=== PATIENT | male | born 1970 | race Caucasian/White ===

== ENCOUNTER 2016-12-03 06:43 | Emergency (ER) | payer OTHER ==
[2016-12-03] MEDS ORDERED: NS 1,000 ML IV ONE (06:45)
--- NOTE | 2016-12-03 06:49 | EDPHY ---
H & P HPI/ROS: HPI CHIEF COMPLAINT: Seizure in bed 2 minutes with a postictal state. HISTORY OF PRESENT ILLNESS: This patient is a 46-year-old male otherwise healthy no significant medical history does not take any daily medications he presents emergency room by EMS after his was woken with him having a generalized tonic-clonic seizure in bed lasting 2 minutes. With a postictal state. EMS reports he was postictal. The reports to EMS that he had 2-3 margaritas last night and edible marijuana. He has never had a seizure before. No bowel bladder incontinence. Did not bite his tongue. Past Medical History: No significant medical history Past Surgical History: No significant surgical Social History: Alcohol last night, edible marijuana reported by EMS. Family History: Noncontributory ROS REVIEW OF SYSTEMS: A comprehensive 10 point review of systems is otherwise negative aside from elements mentioned in the history of present illness. Exam Constitutional appears well nontoxic, triage nursing summary reviewed, vital signs reviewed, awake/alert. Eyes normal conjunctivae and sclera, EOMI, PERRLA. HENT normal inspection, atraumatic, moist mucus membranes, no epistaxis, neck supple/ no meningismus, no raccoon eyes. Respiratory clear to auscultation bilaterally, normal breath sounds, no respiratory distress, no wheezing. Cardiovascular rate normal, regular rhythm, no murmur, no edema, distal pulses normal. Gastrointestinal soft, non-tender, no rebound, no guarding, normal bowel sounds, no distension, no pulsatile mass. Genitourinary no CVA tenderness. Musculoskeletal no midline vertebral tenderness, full range of motion, no calf swelling, no tenderness of extremities, no meningismus, good pulses, neurovascularly intact. Skin pink, warm, & dry, no rash, skin atraumatic. Neurologic normal neurological exam. awake, alert and oriented x 3, AAOx3, moves all 4 extremities equally, motor intact, sensory intact, CN II-XII intact , normal cerebellar, normal vision, normal speech. Psychiatric normal mood/affect. Heme/Lymph/Immune no lymphadenopathy. Differential Diagnosis: Includes but is not limited to in and a particular order: First-time seizure, alcohol on edible marijuana leading to first-time seizure, electrolyte disturbance, intracranial tumor Medical Decision Making: Plan for IV establishment blood draw, check electrolytes, alcohol level drug screen CT head without contrast given 1st seizure. Re-evaluation: CT scan of the head without IV contrast The results of the study are the studies abnormal according to Dr. Juarez. Unable to visualize the frontal lobes very well due to either beam hardening artifact or frontal cerebral edema cannot rule out frontal lobe mass. Recommend MRI with and without contrast.. The study was read by Dr. Juarez I viewed the images myself on the PACS system. 0713: Dr. Juarez recommends MRI with and without contrast to further delineate frontal lobes of this patient's brain cannot rule out brain edema versus mass. Or beam hardening artifact. EKG interpretation by me on record in [facility] system. Impression time of EKG 7:08 a.m., sinus rhythm rate of 66 otherwise unremarkable. No acute ischemic changes or signs of arrhythmia. 0727AM: reports to me that he had a 2 minutes generalized tonic-clonic seizure. Eyes were open. Movement of all extremities we shaking. With a postictal state. addition reports he has been very stressed and having significant anxiety at work. He partake in having margaritas and edible marijuana last night. He does smoke marijuana what he tells me is moderately. MRI of the MRI brain with and without contrast The results of the study are negative for anything acute. I discussed the results of this study with the radiologist Dr. Casey. 2048: Re-evaluation at this time patient resting comfortably no acute distress. Feels comfortable going home. His workup for first-time seizures unremarkable. MRI brain does not show anything acute. He understands he must follow up with Neurology outpatient to be cleared to go back to driving. Most likely cause of seizure is a mixture of alcohol edible marijuana stress and anxiety poor sleep. Understands call Neurology follow-up this week. Do not drive until cleared. At this time I do not have any indication of placed on antiseizure medications. They do understand if he has another seizure to immediately return back to the emergency room. I went over this with him and his . Rest stay well-hydrated. Return if any worsening symptoms questions or concerns.. Source: Patient, EMS Constitutional: Initial Vital Signs Temperature (C) 37 C 12/03/16 06:52 Heart Rate 80 12/03/16 06:52 Respiratory Rate 18 12/03/16 06:52 Blood Pressure 133/77 H 12/03/16 06:52 O2 Sat (%) 92 08/13/17 06:52 O2 Delivery Mode Room Air Allergies/Adverse Reactions: No Known Allergies Allergy (Unverified 12/03/16 06:51) Home Medications: Medication Instructions Recorded NK [No Known Home Meds] 12/03/16 Medical Decision Making - Diagnostics Imaging Results: Imaging Impressions Chest X-Ray 12/03/16 06:45 IMPRESSION: No evidence for acute cardiopulmonary abnormality. - Data Points Laboratory Results: Laboratory Results 12/03/16 06:50 12/03/16 06:50 12/03/16 12/03/16 06:50 06:50 WBC 10.62 10^3/uL H 10^3/uL (3.80-9.50) RBC 5.08 10^6/uL 10^6/uL (4.40-6.38) Hgb 13.9 g/dL g/dL (13.7-17.5) Hct 43.0 % % (40.0-51.0) MCV 84.6 fL fL (81.5-99.8) MCH 27.4 pg L pg (27.9-34.1) MCHC 32.3 g/dL L g/dL (32.4-36.7) RDW 13.4 % % (11.5-15.2) Plt Count 244 10^3/uL 10^3/uL (150-400) MPV 10.2 fL fL (8.7-11.7) Neut % (Auto) 39.3 % % (39.3-74.2) Lymph % (Auto) 49.6 % H % (15.0-45.0) Wise % (Auto) 6.1 % % (4.5-13.0) Eos % (Auto) 3.5 % % (0.6-7.6) Baso % (Auto) 0.7 % % (0.3-1.7) Nucleat RBC Rel Count 0.0 % % (0.0-0.2) Absolute Neuts (auto) 4.17 10^3/uL 10^3/uL (1.70-6.50) Absolute Lymphs (auto) 5.27 10^3/uL H 10^3/uL (1.00-3.00) Absolute Monos (auto) 0.65 10^3/uL 10^3/uL (0.30-0.80) Absolute Eos (auto) 0.37 10^3/uL 10^3/uL (0.03-0.40) Absolute Basos (auto) 0.07 10^3/uL 10^3/uL (0.02-0.10) Absolute Nucleated RBC 0.00 10^3/uL 10^3/uL (0-0.01) Immature Gran % 0.8 % % (0.0-1.1) Immature Gran # 0.09 10^3/uL 10^3/uL (0.00-0.10) Sodium 136 mEq/L mEq/L (134-144) Potassium 3.6 mEq/L mEq/L (3.5-5.2) Chloride 100 mEq/L mEq/L (97-110) Carbon Dioxide 17 mEq/l L mEq/l (22-31) Anion Gap 19 mEq/L H mEq/L (8-16) BUN 17 mg/dL mg/dL (7-23) Creatinine 1.1 mg/dL mg/dL (0.7-1.3) Estimated GFR > 60 Glucose 96 mg/dL mg/dL (70-100) Calcium 9.3 mg/dL mg/dL (8.5-10.4) Troponin I < 0.012 ng/mL ng/mL (0-0.034) Ethyl Alcohol < 10 mg/dL mg/dL (0-10) Medications Given: Discontinued Medications Sodium Chloride (Ns) 1,000 mls @ 0 mls/hr IV ONCE ONE; Wide Open PRN Reason: Protocol Stop: 12/03/16 06:46 Last Admin: 12/03/16 07:16 Dose: 1,000 mls Departure - Departure Disposition: Home, Routine, Self-Care Clinical Impression: Seizure Condition: Good Instructions: New-Onset Seizure in Adults (ED) Additional Instructions: 1. Do not drive into your cleared by Neurology. 2. Return emergency room if you have any worsening symptoms questions or concerns. 3. Refrain from drinking alcohol or doing edible marijuana. 4. Rest and take it easy. Referrals: Patient,NotPresent [Unknown] - As per Instructions Joseph Garcia MD [Medical Doctor] - As per Instructions Stand Alone Forms: Work Excuse
[2016-12-03 06:57] LABS: % IMMATURE GRANULYOCYTES 0.8 % (0.0-1.1); ABSOLUTE IMMATURE GRANULOCYTES 0.09 10^3/uL (0.00-0.10); ADD DIFF? NO; ADD MORPH? NO; ADD SCAN? NO; ATYPICAL LYMPHOCYTE FLAG 0 (0-99); FRAGMENT RBC FLAG 0 (0-99); HEMOGLOBIN 13.9 g/dL (13.7-17.5); LEFT SHIFT FLG 0 (0-99); LIPEMIA HEMOLYSIS FLAG 80 (0-99); MEAN CELL HEMOGLOBIN 27.4 pg (27.9-34.1); MEAN CELL HEMOGLOBIN CONCENTR. 32.3 g/dL (32.4-36.7); MEAN CELL VOLUME 84.6 fL (81.5-99.8); MEAN PLATELET VOLUME 10.2 fL (8.7-11.7); PLATELET CLUMPS FLAG 0 (0-99); PLATELET COUNT 244 10^3/uL (150-400); RED BLOOD CELL COUNT 5.08 10^6/uL (4.40-6.38); RED CELL DISTRIBUTION WIDTH 13.4 % (11.5-15.2)
[2016-12-03 07:06] LABS: ANION GAP 19 mEq/L (8-16); CALCIUM 9.3 mg/dL (8.5-10.4); CARBON DIOXIDE 17 mEq/l (22-31); CHLORIDE 100 mEq/L (97-110); CREATININE 1.1 mg/dL (0.7-1.3); ETHANOL SERUM < 10 mg/dL (0-10); GLOMERULAR FILTRATION RATE > 60; GLUCOSE 96 mg/dL (70-100); POTASSIUM 3.6 mEq/L (3.5-5.2); SODIUM 136 mEq/L (134-144)
--- NOTE | 2016-12-03 07:10 | CPEKG ---
Heart Rate: 66 RR Interval: 909 P-R Interval: 172 QRSD Interval: 88 QT Interval: 424 QTC Interval: 445 P [place]: 47 QRS [place]: 8 T Wave [place]: 3 EKG Severity - NORMAL ECG - EKG Impression: SINUS RHYTHM Electronically Signed By: Carl Pollard 03-Dec-2016 15:12:42
[2016-12-03 07:17] LABS: TROPONIN I < 0.012 ng/mL (0-0.034)
[2016-12-03] MEDS ORDERED: GADOBUTROL 10 ML VIAL IVP ONE (07:57)
[2016-12-03 09:11] VITALS: BP 133/72; PULSE 76; RESP 16; TEMP 97.7; O2SAT 98
== END 2016-12-03 09:11 | disposition home or self-care (01) ==
LOC: EDUNIT#
DX: R56.9 Unspecified convulsions (principal); E86.9 Volume depletion, unspecified
CPT/HCPCS: A9585; G0480

== ENCOUNTER → 2016-12-12 | Outpatient (CLI) | payer OTHER ==
--- NOTE | 2016-12-12 12:53 | CPEEG ---
[f rep st] ELECTROENCEPHALOGRAM EEG. DATE OF STUDY: 12/12/2016 INTERPRETATION: This EEG is abnormal due to the presence of potentially epileptogenic abnormalities over the right frontal head region. These findings would be consistent with a focal seizure disorder. REPORT: This EEG contains 10-11 Hz alpha activity to the posterior head regions. There was no abnormal activation at rest, during photic stimulation, or hyperventilation. The patient became drowsy and fell into light sleep intermittently during the study. During drowsiness and light sleep, the patient had activation of right frontal sharp waves. These discharges had maximal amplitudes over the right fronto-polar head region (electrode FP2). A message was left regarding these findings with the patient's primary neurologist , Dr. Susy Landry. /[id number]/MODL MTDD
== END ==
LOC: FCPNEURO 09:01
PROVIDERS: ATTEND Psychiatry & Neurology Neurology
DX: R56.9 Unspecified convulsions (principal)

== ENCOUNTER 2017-02-28 09:25 | Day surgery (SDC) | payer OTHER ==
[2017-02-28] MEDS ORDERED: MIDAZOLAM 2 MG/2 ML VIAL IVP ONE (09:28)
[2017-02-28] MEDS ORDERED: fentaNYL 100 MCG/2 ML INJ IVP ONE (09:28)
[2017-02-28] MEDS ORDERED: NS 500 ML IV ONE (09:28)
[2017-02-28] MEDS ORDERED: BENZOCAINE UNIT DOSE SPRAY HURRICAINE MM ONE (09:28)
--- NOTE | 2017-02-28 10:44 | PDANEPAE ---
ANE History of Present Illness 46 yo male with PFO/OMID for SALO. ANE Past Medical History - Cardiovascular History Hx Hypertension: No Hx Arrhythmias: No Hx Coronary Artery / Peripheral Vascular Disease: No - Pulmonary History Hx COPD: No Hx Recent Upper Respiratory Infection: No Hx Oxygen in Use at Home: No Hx Sleep Apnea: Yes Pulmonary History Comment: Uses mandibular advancement device for AB - pt says he does not use it regularly. - Neurologic History Hx Seizures: Yes Neurologic History Comment: Recently diagnosed with epilepsy, placed on Lamictal. - Endocrine History Hx Diabetes: No Hypothyroid: No - Renal History Hx Renal Disorders: No - Liver History Hx Hepatic Disorders: No - GI History GERD: no ANE Review of Systems Review of systems is: negative Review of Systems: ANE Patient History - Allergies Allergies/Adverse Reactions: Penicillins Allergy (Verified 02/28/17 09:56) - Home Medications Home medications: home medication list seen and reviewed Home Medications: Lamotrigine 25 mg 02/28/17 [Last Taken 02/28/17] - NPO status NPO Status: no food or drink >8 hours NPO Since - Liquids (Time): 09:15 (small sip of water with morning med) - Anes Hx Anes Hx: no prior problems - Smoking Hx Smoking Status: Former smoker Marijuana use: Yes - Alcohol Use Alcohol Use: Occasionally ANE Labs/Vital Signs - Vital Signs Height: 182.88 cm Weight: 95.254 kg ANE Physical Exam - Airway Neck exam: FROM Mallampati Score: Class 2 Mouth exam: normal dental/mouth exam - Pulmonary Pulmonary: clear to auscultation - Cardiovascular Cardiovascular: regular rate and rhythym - ASA Status ASA Status: II ANE Anesthesia Plan Anesthesia Plan: GA with mask Total IV Anesthesia: Yes
[2017-02-28] MEDS ORDERED: PROPOFOL 200 MG/20 ML VIAL ONE ×4 (10:45→11:14)
[2017-02-28] MEDS ORDERED: LIDOCAINE 2% 5 ML SDV ONE (10:45)
--- NOTE | 2017-02-28 18:48 | ECHO ---
[email or web address] [place] [id number] Main: [phone] Fax: Transesophageal Echocardiography Name: LILA CHANCE MR#: [id number] Study Date: 02/28/2017 Study Time: 10:52 AM Date of : 1970 Age: 46 year(s) Height: ( ) Weight: ( ) BSA: Gender: Male Examination: SALO Indication: Eval for PFO Image Quality: Contrast: Requested by: Roberto Oneil Heart Rate: Rhythm: Normal sinus rhythm BP: / Procedure Staff Med Specialist: Jamaal Pineda Reading Physician: Roberto Oneil Requesting Provider: SALO Exam Details Conclusions: Normal global systolic LV function. An agitated saline study was performed and was positive for intracardiac shunting. Evidence of a small functional patent foramen ovale. Measurements: Chambers Valvular Assessment AV/MV Valvular Assessment TV/PV Normal Normal Normal Name Value Range Name Value Range Name Value Range Visual EF: 60 % Additional Measurements: Findings: Left Ventricle: Normal global systolic LV function. The ejection fraction is visually estimated to be 60 %. Right Ventricle: Normal RV function. Left Atrium: An agitated saline study was performed and was positive for intracardiac shunting. Left Atrial Appendage: No thrombus in left appendage. Mitral Valve: There is no mitral valve regurgitation. Patient: LILA CHANCE Study Date: 02/28/2017 Page 1 of 2 10:52 AM Aortic Valve: The aortic valve is tri-leaflet. The aortic valve is normal in appearance and function. Tricuspid Valve: The tricuspid valve is normal in appearance and function. Pulmonic Valve: The pulmonic valve is normal in appearance and function. Aorta: The aorta is normal. Pericardium: No pericardial effusion. PFO: Evidence of a small functional patent foramen ovale. l1n (No Signature Object) Patient: LILA CHANCE Study Date: 02/28/2017 Page 2 of 2 10:52 AM [id number]
--- NOTE | 2017-02-28 18:48 | ECHO ---
[email or web address] [place] [id number] Main: [phone] Fax: Transesophageal Echocardiography Name: LILA CHANCE MR#: [id number] Study Date: 02/28/2017 Study Time: 10:52 AM Date of : 1970 Age: 46 year(s) Height: ( ) Weight: ( ) BSA: Gender: Male Examination: SALO Indication: Eval for PFO Image Quality: Contrast: Requested by: Roberto Oneil Heart Rate: Rhythm: Normal sinus rhythm BP: / Procedure Staff Log Handler: Jamaal Pineda Reading Physician: Roberto Oneil Requesting Provider: SALO Exam Details Conclusions: Normal global systolic LV function. An agitated saline study was performed and was positive for intracardiac shunting. Evidence of a small functional patent foramen ovale. Measurements: Chambers Valvular Assessment AV/MV Valvular Assessment TV/PV Normal Normal Normal Name Value Range Name Value Range Name Value Range Visual EF: 60 % Additional Measurements: Findings: Left Ventricle: Normal global systolic LV function. The ejection fraction is visually estimated to be 60 %. Right Ventricle: Normal RV function. Left Atrium: An agitated saline study was performed and was positive for intracardiac shunting. Left Atrial Appendage: No thrombus in left appendage. Mitral Valve: There is no mitral valve regurgitation. Patient: LILA CHANCE Study Date: 02/28/2017 Page 1 of 2 10:52 AM Aortic Valve: The aortic valve is tri-leaflet. The aortic valve is normal in appearance and function. Tricuspid Valve: The tricuspid valve is normal in appearance and function. Pulmonic Valve: The pulmonic valve is normal in appearance and function. Aorta: The aorta is normal. Pericardium: No pericardial effusion. PFO: Evidence of a small functional patent foramen ovale. l1n (No Signature Object) Patient: LILA CHANCE Study Date: 02/28/2017 Page 2 of 2 10:52 AM [id number]
--- NOTE | 2017-02-28 18:48 | ECHO ---
[email or web address] [place] [id number] Main: [phone] Fax: Transesophageal Echocardiography Name: LILA CHANCE MR#: [id number] Study Date: 02/28/2017 Study Time: 10:52 AM Date of : 1970 Age: 46 year(s) Height: ( ) Weight: ( ) BSA: Gender: Male Examination: SALO Indication: Eval for PFO Image Quality: Contrast: Requested by: Roberto Oneil Heart Rate: Rhythm: Normal sinus rhythm BP: / Procedure Staff Assistant Service Manager: Jamaal Pineda Reading Physician: Roberto Oneil Requesting Provider: SALO Exam Details Conclusions: Normal global systolic LV function. An agitated saline study was performed and was positive for intracardiac shunting. Evidence of a small functional patent foramen ovale. Measurements: Chambers Valvular Assessment AV/MV Valvular Assessment TV/PV Normal Normal Normal Name Value Range Name Value Range Name Value Range Visual EF: 60 % Additional Measurements: Findings: Left Ventricle: Normal global systolic LV function. The ejection fraction is visually estimated to be 60 %. Right Ventricle: Normal RV function. Left Atrium: An agitated saline study was performed and was positive for intracardiac shunting. Left Atrial Appendage: No thrombus in left appendage. Mitral Valve: There is no mitral valve regurgitation. Patient: LILA CHANCE Study Date: 02/28/2017 Page 1 of 2 10:52 AM Aortic Valve: The aortic valve is tri-leaflet. The aortic valve is normal in appearance and function. Tricuspid Valve: The tricuspid valve is normal in appearance and function. Pulmonic Valve: The pulmonic valve is normal in appearance and function. Aorta: The aorta is normal. Pericardium: No pericardial effusion. PFO: Evidence of a small functional patent foramen ovale. l1n (No Signature Object) Patient: LILA CHANCE Study Date: 02/28/2017 Page 2 of 2 10:52 AM [id number]
== END 2017-02-28 12:00 | disposition home or self-care (01) ==
LOC: FCATH 09:25
PROVIDERS: ATTEND Internal Medicine Cardiovascular Disease
DX: Q21.1 Atrial septal defect (principal); I51.7 Cardiomegaly
CPT/HCPCS: J2704

== ENCOUNTER 2017-08-01 23:04 | Emergency (ER) | payer SELFPAY ==
[2017-08-01 23:09] VITALS: BP 108/71
[2017-08-01] MEDS ORDERED: FLUORESCEIN SOD/BENOXINATE HCL 20 DROPS/ML OPHT.BTL ONE (23:14)
--- NOTE | 2017-08-01 23:19 | EDPHY ---
H & P Stated Complaint: LEFT EYE PAIN Time Seen by Provider: 08/01/17 23:18 HPI/ROS: HPI: This is a 47-year-old male who presents with Chief Complaint: Left eye pain Location: Left eye Quality: foreign body sensation Duration: since this morning Signs and Symptoms: no fever, no nausea, no vomiting, no photophobia, no noise sensitivity, no neck stiffness, no ear pain, no tinnitus, no nasal congestion, no sinus pressure, no weakness, no radiation, no aura, no eye drainage Timing: acute, constant Severity: mild to moderate Context: Patient reports that he was taking his child to school early this morning when he felt like he had something in his left upper eye near the 3 o' clock position. He reports that he flushed several times with cool water with no relief of the foreign body sensation. He denies any photophobia/ocular discharge/eye redness/visual floaters/headache. Patient reports that several years ago he had a similar situation in which they used a slit lamp to find a micro foreign body. He reports that he currently does not have insurance and he is extremely concerned about cost. Went to the urgent cares evening but they were already closed. Tetanus status unknown. Does not wear contact lenses. Modifying Factors: flushed with water several times with no relief Comment: ROS: see HPI Constitutional: No fever, no chills, no weight loss Eyes: No blurred vision Respiratory: No shortness of breath, no cough Cardiovascular: No chest pain, no palpitations Gastrointestinal: No nausea, no vomiting, no diarrhea, no hematemesis, no blood in stool Genitourinary: No dysuria, no blood in urine Extremities: No myalgias, no edema Neurologic: No weakness, no numbness Skin: No rashes, no petechiae Hematologic: No bruising, no bleeding MEDICAL/SURGICAL/SOCIAL HISTORY: Medical history: Generally healthy. Does not take any regular medications. 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 CONSTITUTIONAL: Well-developed, well-nourished, middle-aged white male, awake and alert, no obvious distress Visual Acuity: noted from Nurse's notes. Pupils: equal round and reactive to light. EOMI. Lids: no edema or swelling Skin: no proptosis, no periorbital erythema or swelling, no vesicles Conjunctivae: not injected, no discharge; small black pinpoint foreign body noted in the eyelid inner fold Cornea: exam with fluorescein shows no uptake Anterior chamber: normal, no hyphema or hypopyon Source: Patient Exam Limitations: No limitations - Personal History Current Tetanus/Diphtheria Vaccine: Unsure Current Tetanus Diphtheria and Acellular Pertussis (TDAP): Unsure - Medical/Surgical History Hx Asthma: No Hx Chronic Respiratory Disease: No Hx Diabetes: No Hx Cardiac Disease: No Hx Renal Disease: No Hx Cirrhosis: No Hx Alcoholism: No Hx HIV/AIDS: No Hx Splenectomy or Spleen Trauma: No Other PMH: denies - Social History Smoking Status: Former smoker Constitutional: Initial Vital Signs Temperature (C) 36.8 C 08/01/17 23:07 Heart Rate 61 08/01/17 23:07 Respiratory Rate 18 08/01/17 23:07 Blood Pressure 108/71 08/01/17 23:07 O2 Sat (%) 97 08/01/17 23:07 O2 Delivery Mode Room Air Allergies/Adverse Reactions: Penicillins Allergy (Verified 02/28/17 09:56) Home Medications: Medication Instructions Recorded Lamotrigine 150 mg BID 02/28/17 Medical Decision Making Procedures: Procedure: Foreign body removal from cornea: Anesthesia: Topical. After verbal consent from the patient, an embedded black pinpoint foreign body was removed from the cornea of the left eye. The foreign body was removed manually using a cotton-tipped applicator using direct visualization. Following removal there was no significant rust ring. There were no complications and the patient tolerated the procedure well. The procedure was performed by myself. ED Course/Re-evaluation: Small pinpoint black; non metallic object removed from 3:00 position inner fold eyelid. Mild inner conjunctival edema and swelling noted. Patient politely declined tetanus booster to be given. Advised follow-up with Ophthalmology within 24-72 hours. Given Ofloxacin eye drops for antibiotic prophylaxis. This patient was seen under the supervision of my secondary supervising physician. I evaluated care for this patient independently. Differential Diagnosis: Differential diagnosis includes but is not limited to iritis, conjunctivitis, corneal abrasion, retinitis, foreign body. - Data Points Medications Given: Discontinued Medications Ofloxacin (Ocuflox 0.3% Opht Drops Prepack) 1 btl TAKECATALINA EDNATA ONE Stop: 08/01/17 23:48 Last Admin: 08/02/17 00:02 Dose: 1 btl Departure - Departure Disposition: Home, Routine, Self-Care Clinical Impression: Foreign body of left eye Qualifiers: Encounter type: initial encounter Qualified Code(s): T15.92XA - Foreign body on external eye, part unspecified, left eye, initial encounter Condition: Good Instructions: Ofloxacin (Into the eye), Eye Foreign Body (ED) Additional Instructions: Apply ice to your left eye for 30 minutes at a time; 2-3 times per day for the next 1-2 days. Apply Ofloxacin eye drops to your left eye every 4-6 hours while awake times 5- 7 days. Follow up with Ophthalmology in 48-72 hours. Follow-Up: Please follow-up as noted above. Follow-up sooner if your condition worsens or if you develop any new problems. Call as soon as possible for an appointment. Be clear when you call for an appointment that this is an Emergency Department follow-up. Contact the Emergency Department if you have trouble arranging follow-up care. Our referrals are not based on your insurance network. When time allows, contact your insurance carrier to verify the referral physician is in your plan. If not, get a referral for an in-network support administrator. Referrals: Katia Hayward MD [Primary Care Provider] - As per Instructions Maribell Bee MD [Medical Doctor] - As per Instructions
[2017-08-01] MEDS ORDERED: OFLOXACIN 0.3% SOLN PREPACK OPHT.BTL TAKEHOME ONE (23:47)
== END 2017-08-02 00:07 | disposition home or self-care (01) ==
PROC: 08C9XZZ Extirpation of Matter from Left Cornea, External Approach (ICD-10-PCS; principal; 2017-08-01)
DX: T15.02XA Foreign body in cornea, left eye, initial encounter (principal); Z87.891 Personal history of nicotine dependence; X58.XXXA Exposure to other specified factors, initial encounter

== ENCOUNTER 2017-10-02 11:18 | Observation (INO) | payer OTHER ==
[2017-10-02] MEDS ORDERED: GADOBUTROL 10 ML VIAL IVP ONE (14:01)
[2017-10-02] MEDS: BACITRACIN OINTMENT 1 PACKET TP SCH (21:00)
[2017-10-02] MEDS: lamoTRIgine 100 MG TAB PO SCH (21:00)
[2017-10-03] MEDS ORDERED: ZOLPIDEM TARTRATE 5 MG TAB PO PRN (00:08)
[2017-10-03] MEDS ORDERED: ONDANSETRON DISINTEGRATING 4 MG TAB PO PRN (00:08)
[2017-10-03] MEDS ORDERED: ONDANSETRON 4 MG/2 ML VIAL IVP PRN (00:09)
[2017-10-03] MEDS: BACITRACIN OINTMENT 1 PACKET TP SCH (09:05)
[2017-10-03] MEDS: lamoTRIgine 100 MG TAB PO SCH (09:05)
[2017-10-03] MEDS ORDERED: ASPIRIN 81 MG CHEWABLE TAB PO SCH (10:30)
--- NOTE | 2017-10-03 11:01 | HOSPPROG ---
Hospitalist Progress Note Assessment/Plan: Patient is a 47 y/o male who presented to the ER with left sided numbness and tingling. Reviewed his care w Dr Harris. The patient had a stroke, has a PFO. To be seen by Dr Watson today. Will need an aspirin daily, lipid panel pending,will f/u w Dr Harris and starting a statin. *stroke, lacunar - cards met w Jordy -will set up OP cardiac monitoring and SALO -aspirin daily, lipids pending -will see Dr Harris and get treatment w statin if indicated -reviewed telemetry monitoring and he is in a sinus rhythm *seizure -seen at , cont home mes *Plan: dc today w close f/u with cardiology and neurology Subjective: Jordy is feeling fine, anxious to go cookie. Objective: Vital Signs Temp Pulse Resp BP Pulse Ox 37.2 C 59 L 16 108/64 96 10/03/17 08:27 10/03/17 08:27 10/03/17 08:27 10/03/17 08:27 10/03/17 08:27 10/02/17 10/03/17 10/04/17 05:59 05:59 05:59 Intake Total 1500 Balance 1500 - Physical Exam Constitutional: no apparent distress, appears nourished, not in pain Eyes: PERRL Ears, Nose, Mouth, Throat: hearing normal Cardiovascular: regular rate and rhythym Respiratory: no respiratory distress Gastrointestinal: normoactive bowel sounds Skin: warm Musculoskeletal: full muscle strength Neurologic: AAOx3, sensation intact bilaterally, No weakness, No facial droop Psychiatric: interacting appropriately, not anxious, not encephalopathic ICD10 Worksheet Patient Problems: Problems Problem Status Onset Patent foramen ovale with right to left shunt Acute Stroke Acute
--- NOTE | 2017-10-03 11:23 | ASMTCMCOM ---
CM Note CM Note Notes: Patient admitted with c/o L-sided numbness and tingling, which had mostly resolved at time of ED visit. He is being followed by neurology for CVA v TIA. PT/OT/[employer] ordered; PT note says he is back to baseline. We will await other therapy evaluations to see if he has any discharge needs. Patient is normally independent, lives with and their children. No d/c needs anticipated. Date Signed: 10/03/2017 11:23 AM Electronically Signed By:Sarina Best RN
--- NOTE | 2017-10-03 11:33 | ECHO ---
[email or web address] [address] [address] Main: [phone] Fax: Transthoracic Echocardiogram Name: LILA CHANCE MR#: [id number] Study Date: 10/03/2017 Study Time: 08:40 AM Date of : 1970 Age: 47 year(s) Height: 182.9 cm (72 in.) Weight: 95.26 kg (210 lb.) BSA: 2.18 m2 Gender: Male Examination: Echo Indication: Possible TIA Image Quality: Adequate Contrast: Requested by: Yuriy Ron BP: 108 mmHg/64 mmHg Heart Rate: Rhythm: Indication: Possible TIA Procedure Staff Alteration Tailor: Kate Cheung [facility] Reading Physician: Maggy York MD Requesting Provider: Conclusions: Normal size left ventricle. Mild concentric LV hypertrophy. Normal global systolic LV function. EF is 62 %. No regional wall motion abnormality. Normal diastolic LV function. Normal size right ventricle. Normal RV function. Mild mitral valve regurgitation is present. Mild tricuspid regurgitation is present. Right ventricular systolic pressure measures 21mmHg. compared with SALO dated 02/28/2017 PFO was seen on SALO. Ejection fraction remains normal. No significant valvular disease. If high clinical concern for cardioembolic source of TIA consider SALO. Measurements: Chambers Valvular Assessment AV/MV Valvular Assessment TV/PV Normal Normal Normal Name Value Range Name Value Range Name Value Range Ao Ligia (2D): 2.7 cm (1.4 cm-2.6 AV Vmax: 1.39 m/s (1 m/s-1.7 TR Vmax: 2.00 mm/s ( - ) cm) m/s) TR PGmax: 16 mmHg ( - ) IVSd (2D): 1.0 cm (0.6 cm-1.1 AV maxP mmHg ( - ) syst. PAP: 21 mmHg ( - ) cm) AV meanP mmHg ( - ) PV Vmax: 0.92 m/s (0.6 m/s-0.9 LVDd (2D): 5.2 cm (4.2 cm-5.9 SHEKHAR (VTI): 3.1 cm ( - ) m/s) cm) MV E Vmax: 0.83 m/s ( - ) PV PGmax: 3 mmHg ( - ) LVDs (2D): 3.1 cm (2.1 cm-4 MV A Vmax: 0.39 m/s ( - ) cm) MV E/A: 2.13 ( - ) LVPWd (2D): 1.1 cm (0.6 cm-1 cm) MV PHT: 0.077 s ( - ) MVA (PHT): 2.9 s ( - ) Patient: LILA CHANCE Study Date: 10/03/2017 Page 1 of 2 08:40 AM LVOTd 2.0 cm 2.0 cm mm LVEF (BP): 62 % (>=55 %) RVDd(2D): 3.5 cm (1.9 cm-3.8 cmmm) Continued Measurements: Chambers Valvular Assessment AV/MV Valvular Assessment TV/PV Name Value Name Value Name Value LADs: 3.9 cm MV DecTime: 254 m/s CVP (est.): 5 mmHg LADs Lon.1 cm MV E' Septal: 0.13 m/s LA Area: 21.0 cm2 MV E/E' Septal: 6.40 LA Volume: 70 ml MV E/E' Lateral: 6.00 LA Volume Index: 32.1 ml/m2 RA Area: 22.4 cm2 Additional Vessels Name Value Ao Ascendin.2 cm Findings: Left Ventricle: Normal size left ventricle. Mild concentric LV hypertrophy. Normal global systolic LV function. EF is 62 %. No regional wall motion abnormality. Normal diastolic LV function. Right Ventricle: Normal size right ventricle. Normal RV function. Left Atrium: The left atrium is normal in size. Right Atrium: The right atrium is normal in size. Mitral Valve: The mitral valve is normal in appearance and function. Mild mitral valve regurgitation is present. No mitral stenosis is present. Aortic Valve: The aortic valve is normal in appearance and function. There is no aortic valve regurgitation. No aortic valve stenosis is present. Tricuspid Valve: The tricuspid valve is normal in appearance and function. Mild tricuspid regurgitation is present. The pulmonary artery pressure is normal. Right ventricular systolic pressure measures 21mmHg. Pulmonic Valve: The pulmonic valve is normal in appearance and function. There is no pulmonic regurgitation seen. Aorta: The aorta is normal. Normal size aortic root measuring 2.7 cm. Normal size ascending aorta measuring 3.2 cm. Pericardium: No pericardial effusion. No pleural effusion. Exam Comments: Patient says he has a known PFO. (No Signature Object) Patient: LILA CHANCE Study Date: 10/03/2017 Page 2 of 2 08:40 AM [id number]
[2017-10-03 12:30] VITALS: BP 122/76
--- NOTE | 2017-10-03 13:31 | GCON ---
[f rep st] CONSULTATION CARDIOLOGY CONSULT CHIEF COMPLAINT: Left arm weakness, numbness. HISTORY OF PRESENT ILLNESS: This is a 47-year-old male who has a history of a grand mal seizure. Th e patient was in his normal state of health and went to the dog park with his son and then developed acute left-sided numbness and tingling. It took several hours to resolve. The patient did come to [facility] emergency room for further evaluation, where an MRI showed an acute lesion in the right frontal lo be, without hemorrhage or mass effect. Neurology was consulted and evaluated the patient thoroughly. The patient currently is improving from a clinical standpoint and has no residual effects from his acute event. The patient's ECG on admission from telemetry strips showed normal sinus rhythm with no evidence of atrial fibrillation or any other arrhythmia. The patient denies any history of any arrh ythmia or cardiac issues. Currently, the blood pressure and heart rate are stable. PAST MEDICAL HISTORY: Significant for a grand mal seizure. MEDICATIONS: Home medications consist of Lamictal. SOCIAL HISTORY: Patient has occasional alcohol use. No smoking. He is , with children. 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 FAMILY HISTORY: Noncontributory. REVIEW OF SYSTEMS: Patient currently denies any vision changes. No headache. He does complain of a slight bruise on the right forehead. No visual changes. No neck pain. No throat pain. No chest p ain. No shortness of breath. No abdominal pain. No lower extremity pain. No new neurologic defici ts. PHYSICAL EXAM: VITAL SIGNS: Patient is afebrile at 98.6, blood pressure 110/70, with a heart rate o f 72, respirations 12, satting 95% on room air. HEENT: Pupils equal, reactive to light. Extraocula r movements intact. CARDIOVASCULAR: Regular rate and rhythm. S1, S2. LUNGS: Clear to auscultatio n bilaterally. ABDOMEN: Soft, nontender, no guarding. EXTREMITIES: No clubbing, no cyanosis, no e kosta. NEUROLOGIC: Alert and oriented x3. LABORATORY DATA: Currently pending at this point. ASSESSMENT/PLAN: Cerebrovascular accident. The patient did have a SALO performed in February 2017, w [facility] did show apparently a small patent foramen ovale, which was evidenced with agitated saline. Jose jurado spoken with Dr. Harris, who feels that this could potentially be the etiology for the patient' s underlying clinical presentation. We agree with continuing the patient on his baby dose aspirin an d have discussed with the patient about close followup in the outpatient setting to first check a 30- day monitor to make sure that no arrhythmia is responsible for his presentation, i.e., atrial fibrill ation. Additionally, we will discuss potential PFO closure in the near future. I will review the TE E images myself, and if it seems that the visualization of the atrial septum is not optimal, we will repeat a SALO as well with emphasis on better visualization of the potential PFO. The patient underst ands and agrees with the plan and will follow up with us within the next few days in the office. /[id number]/MODL
--- NOTE | 2017-10-03 13:36 | GCON ---
[f rep st] CONSULTATION NEUROLOGIC CONSULTATION I am asked to see patient, Jordy Mosley, for neurologic consultation today regarding acute onset yeste rday of numbness in the left arm and leg after he had been on a walk and was at home when he felt a s trange sensation in the right side of his head. He had symptoms probably for a total of 2 hours' dur ation. He went to the emergency room for evaluation to make sure there was no evidence of anything s pecific. He specifically was hoping to be evaluated for stroke or TIA based on some quick reading he was doing and general knowledge base. A year ago approximately, he had experienced a generalized to pinky-clonic seizure, and workup showed some epileptiform activity, and he is on some lamotrigine and f ollowed at [facility]. He feels completely back to normal now. The patient has been und er some stress, but he says he is handling that well. He has not have any recent trauma or unusual i llnesses. He feels completely back to his baseline. However, brain MRI shows a subcentimeter stroke in the deep white matter on the right and nothing else more specific. He also has a known PFO from prior workup with a transesophageal echocardiogram in February. FAMILY HISTORY: Notable for stroke in his father. SOCIAL HISTORY: Rare exposure to marijuana. No drug abuse. Only rare alcohol. 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 MEDICATIONS: He was not taking aspirin when he came to the hospital, but he has now been started on aspirin this morning. At home, he takes occasional Ambien. The lamotrigine is 150 mg b.i.d. ALLERGY: Penicillin. REVIEW OF SYSTEMS: Unremarkable, except for that noted above. PHYSICAL EXAMINATION: VITAL SIGNS: Blood pressure 122/76, pulse of 60, respirations 16, temperature 36.9. GENERAL: He is well developed, in no acute distress. NECK: Supple with no bruits or masses . CARDIAC: Regular rate and rhythm. No murmur. NEUROLOGIC: He is alert, attentive with normal co gnition. Pupils are 3 mm and reactive. Extraocular movements intact. Normal facial sensation and s trength. Motor exam: 5/5 strength. Sensation is preserved for temperature and light touch. Normal gait. 1+ reflexes. IMPRESSION: The patient has experienced an episode of acute neurologic dysfunction consistent with a n ischemic infarction in the deep white matter on the right, with his principal risk factor being the patent foramen ovale and low probability of other sources for stroke at this stage. Lipid panel is pending. Lipid treatment with a statin should be considered even if his cholesterol level and LDL ar e in a generally good range, but we will await that decision in outpatient rather than starting a sta tin now as we continue this workup. I have spoken to Cardiology, Dr. Caldwell, and he will see the [facility] for evaluation and discussion and consider a ekg monitor tech to look for occult atrial fibrilla tion prior to an anticipated closure of the patent foramen ovale through endovascular technique. The patient can then follow up with me as well as Cardiology. He can follow up with me or at the [facility] for his epilepsy management, which is based on this single seizure over a year ago, presumably g eneralized tonic-clonic or partial with secondary generalization. Total unit time of 70 minutes. /[id number]/MODL
--- NOTE | 2017-10-03 13:56 | GCON ---
[f rep st] CONSULTATION NEUROLOGIC CONSULTATION REFERRING PHYSICIAN: Shawanda Conde NP HISTORY: The patient is a 47-year-old gentleman whom I am seeing in neurologic consultation regardin g stroke or TIA. The history is obtained from review of his medical records, as well as direct discu ssion with the patient, who is a very good historian. Yesterday, he was walking at a dog park and ca me home and in the kitchen of his home felt an abrupt abnormal feeling in the side of his head on the right and left-sided numbness, which affected the arm and leg with tingling, but he says he was not really weak. He says it was a very strange perception. He did not have any altered awareness. He d id promptly think about the possibility of seizure or a possible stroke. He had a history of a seizu re a year ago and had some abnormalities on EEG at the time suggesting risk for recurrent seizure and has been followed at the [place] for that on lamotrigine without any recurrence of seizure. On t his particular occasion, he did not have any abnormal movements. He decided he should go to the hosp ital and did eventually get to the emergency department for his evaluation and did not have any fixed deficits at that point that he was aware of. He would estimate the total duration of symptoms about 2 hours. Since coming to the hospital, he has had brain MRI obtained that shows evidence of a small stroke in the deep white matter on the right. He still feels he is back at his baseline. No chest pain, palpitations, or shortness of breath. PAST MEDICAL HISTORY: As outlined above. He does have the prior EEG obtained in November of 2016, [facility] was abnormal due to the presence of potentially epileptic abnormalities over the right frontal hea d region. The clinical description from December 03, 2016, when he came to the emergency department fo r seizure was that he had been healthy and his was awakened when he appeared to be having a gene ralized tonic-clonic seizure for a few minutes and then was postictal. They never found a definitive source for this. He otherwise has been healthy. No prior history of any stroke. Brain imaging in November 2016 did not show evidence of stroke. He had a transesophageal echocardiogram in February, an d that showed intracardiac shunting with a small functional patent foramen ovale and normal ejection fraction. FAMILY HISTORY: Notable for stroke in his father. 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 No alcohol or dr ug abuse. He has occasional exposure to marijuana. Current dosing of Lamictal is 150 mg b.i.d. CURRENT MEDICATION: Aspirin 81 mg daily, which he was not on when he came to the hospital, lamotrigi ne 150 mg b.i.d. At home, he occasionally takes Ambien for sleep and intermittent use of Motrin. ALLERGIES: Penicillin. REVIEW OF SYSTEMS: As outlined above. Otherwise, notable for some increased stress in life, but he says he is still sleeping fairly well and managing his stress as best he can. He does not describe a cute feelings of anxiety or depression. PHYSICAL EXAMINATION: VITAL SIGNS: Blood pressure 122/76, pulse of 62, respirations 16, temperature 36.9. GENERAL: He is well developed in no acute distress. NECK: Supple with no bruits or masses. CARDIAC: Regular rate and rhythm. No murmur. He is awake, alert, and attentive and fully oriente d with normal cognition. Pupils 3 mm and reactive. Extraocular movements are intact. Normal facial sensation and strength. Motor exam reveals normal muscle bulk and tone, 5/5 strength. Sensation is preserved. Reflexes are 1+ and symmetric. He has a normal gait. I reviewed the diagnostic studies with Radiology, and there is a small stroke seen in the deep white matter on the right side of the b rain, which does not have any associated hemorrhage. It is just below a centimeter in size. There i s a change in the subcutaneous region in the right scalp where he had just had a biopsy a couple of d ays ago for a cystic lesion thought to be benign. CURRENT LABORATORY STUDIES: Show unremarkable CBC. Electrolytes are normal. Urinalysis is unremark able. Tox screen shows no alcohol. DICTATION ENDS HERE /[id number]/MODL
--- NOTE | 2017-10-03 14:31 | GDS ---
[f rep st] DISCHARGE SUMMARY DISCHARGE DIAGNOSES: 1. Stroke. 2. Seizure disorder. 3. Patent foramen ovale. CONSULTATIONS: 1. Gene Harris MD. 2. Scott Caldwell MD. BRIEF HISTORY: The patient is a 47-year-old male who was out walking his dog and came home. He [place] having this feeling of left-sided numbness which affected the arm and leg with tingling, but he d id not feel weak. He did think that he could be having a seizure or possible stroke. He has a histo ry of a seizure a year ago. He decided to go to the hospital. He had an MRI performed that showed a small stroke on the right. He is back to his baseline. He was seen and evaluated by Dr. Scott courtney, and recommendation was for him to follow up in the outpatient setting. He will review the hilton singh's previous SALO. He will get cardiac monitoring. HOSPITAL COURSE PER PROBLEM: 1. Stroke. He had a brain MRI which showed an acute subcentimeter lacunar infarct in the right fron jaime lobe, posterior superior mesial subcortical white matter without hemorrhage or mass effect. It a lso showed a right frontal scalp subcutaneous nonspecific 4 cm of enhancement edema with a differenti al diagnosis of cellulitis, nonspecific inflammatory infectious process, or less likely neoplasm. He has no hydrocephalus. An echocardiogram was performed, which showed an EF of 62%. He has no region al wall abnormalities. He has normal diastolic LV function, normal size right ventricle. His right ventricular systolic pressure measures 21 mmHg compared with a SALO dated on 02/28/2017, in which a PF O was seen. He will be discharged with close followup with Cardiology. He also has been initiated o n aspirin therapy. He will discuss with his Primary Care Provider or Dr. Harris about taking a st atin. I have recommended that he take this in the setting of a stroke. His father also had a stroke . 2. Seizures. Home medications resumed. 3. PFO. Further evaluation by Cardiology. DISCHARGE CONDITION: Stable. Blood pressure is 122/76, heart rate is 62, respiratory rate is 16. O 2 sats on room air 92%. Temperature is 36.9 Celsius. MEDICATIONS AT DISCHARGE: Please see the EMR. DISCHARGE INSTRUCTIONS: 1. To take aspirin daily. 2. To recommend that he stop taking ibuprofen. 3. See Dr. Caldwell next week for cardiac monitoring. 4. If he has any stroke symptoms, to call 911. /[id number]/MODL
[2017-10-04 08:25] LABS: INR 0.93 (0.83-1.16); PROTIME(PATIENT) 12.7 SEC (12.0-15.0)
[2017-10-04 09:41] LABS: PLATELET COUNT 220 10^3/uL (150-400)
--- NOTE | 2017-10-04 19:14 | EDPHY ---
H & P Stated Complaint: ARM AND LEG NUMBNESS Source: Patient Exam Limitations: No limitations - Personal History Current Tetanus/Diphtheria Vaccine: Yes Current Tetanus Diphtheria and Acellular Pertussis (TDAP): Yes - Medical/Surgical History Hx Asthma: No Hx Chronic Respiratory Disease: No Hx Diabetes: No Hx Cardiac Disease: No Hx Renal Disease: No Hx Cirrhosis: No Hx Alcoholism: No Hx HIV/AIDS: No Hx Splenectomy or Spleen Trauma: No Other PMH: denies - Social History Smoking Status: Former smoker Time Seen by Provider: 10/02/17 11:18 HPI/ROS: HPI: This is a 47-year-old male who presents with Chief Complaint: Left-sided arm and leg numbness Location: Left side arm and leg Quality: Numbness Duration: 4-5 hours prior to arrival Signs and Symptoms: No weakness, no radiation, no fever, no difficulty speaking , no trauma Timing: Acute, constant Severity: Khnc-qk-caooersy Context: Patient has a history of right frontal lesion, epilepsy, PFO currently taking Lamictal 150 mg twice daily followed by Dr. Sharmaine Mccoy at [facility] presents with sudden onset of left side numbness and tingling that incorporates his entire left-sided body from his neck to his toes. He reports that he was standing at the sink when this started to occur approximately 4-5 hours prior to arrival. This morning he was out walking his dog with his son and came home. He denies any feelings of weakness or radiation. He does have a history of seizure approximately 1 year ago. He reports that he missed his Lamictal dose at the time yesterday evening but did take around 4:00 a.m. This morning. Modifying Factors: None Comment: ROS: see HPI Constitutional: No fever, no chills, no weight loss Eyes: No blurred vision Respiratory: No shortness of breath, no cough Cardiovascular: No chest pain Gastrointestinal: No nausea, no vomiting, no diarrhea Genitourinary: No dysuria Extremities: No myalgias Neurologic: No weakness, no numbness Skin: No rashes Hematologic: No bruising, no bleeding MEDICAL/SURGICAL/SOCIAL HISTORY: Medical history: Right frontal lesion, epilepsy. Surgical history: Denies Social history: Family history noncontributory. CONSTITUTIONAL: Extremely polite and cooperative middle-aged white male, awake and alert, no obvious distress HEENT: Atraumatic and normocephalic, PERRL, EOMI. Nares patent; no rhinorrhea; no nasal mucosal edema. Tympanic membranes clear. Oropharynx clear, no exudate and moist pink mucosa. Airway patent. No lymphadenopathy. No meningismus. Cardiovascular: Normal S1/S2, regular rate, regular rhythm, without murmur rub or gallop. PULMONARY/CHEST: Symmetrical and nontender. Clear to auscultation bilaterally. Good air movement. No accessory muscle usage. ABDOMEN: Soft, nondistended, nontender, no rebound, no guarding, no peritoneal signs, no masses or organomegaly. No CVAT. EXTREMITIES: 2/2 pulses, strength 5/5, no deformities, no clubbing, no cyanosis or edema. NEUROLOGICAL: no focal neuro deficits. GCS 15. Normal awzonj-zn-oycg test. Normal cbjv-io-jfjj test. Normal cerebellar testing. SKIN: Warm and dry, no erythema. no rash. Good capillary refill. (Chely Romo) Constitutional: Initial Vital Signs Temperature (C) 36.6 C 10/02/17 11:18 Heart Rate 53 L 10/02/17 11:18 Respiratory Rate 12 10/02/17 11:18 Blood Pressure 93/61 L 10/02/17 11:18 O2 Sat (%) 96 10/02/17 11:18 O2 Delivery Mode Room Air Allergies/Adverse Reactions: Penicillins Allergy (Verified 02/28/17 09:56) Home Medications: Medication Instructions Recorded Zolpidem Tartrate [Ambien 5MG (*)] 5 mg PO HS PRN 10/02/17 lamoTRIgine [Lamictal] 150 mg PO BID 10/02/17 Aspirin [Aspirin 81mg (*)] 81 mg PO DAILY #0 tab.chew 10/03/17 Medical Decision Making ED Course/Re-evaluation: Vital signs reviewed and stable upon arrival. Laboratory studies and MRI brain ordered Patient reports that symptoms have almost completely resolved and started approximately 4-5 hours prior to arrival. Patient is not a tPA candidate after discussion with attending Labs reviewed. No signs of leukocytosis/anemia/platelet dysfunction/STEF/ elevated LFTs/electrolyte imbalance. Called by Radiology that MRI showed 7 mm lacunar infarct on the right side without any edema, carotid are patent ED decision to consult for admission prior to obtaining imaging from MRI TIA versus CVA. Spoke with hospitalist, Dr. Contreras, kindly agrees to admit patient and Neurology who will consult on the patient. This patient was seen under the supervision of my secondary supervising physician. I evaluated care for this patient independently. Discussed this patient with Dr. Wang who did not see the patient. This chart was completed 2 days after the patient was seen in the emergency room as the hospital sustained a down time in the electronic medical records. Please note that the chart may be incomplete. (Chely Romo) Differential Diagnosis: Differential diagnosis includes but is not limited to TIA, CVA, seizure. (Chely Romo) Other Provider: This note was created during prolonged hospital-wide EHR downtime and may be incomplete or contain inaccuracies to due circumstance limitations. (Sukhdev Wang) - Data Points Laboratory Results: Laboratory Results 10/02/17 11:18 10/02/17 11:18 Medications Given: Discontinued Medications Aspirin (Aspirin) 81 mg PO DAILY KEYONA Stop: 04/01/18 10:29 Last Admin: 10/03/17 12:06 Dose: 81 mg Bacitracin (Bacitracin Ointment) 1 jeannie TP DAILY KEYONA Stop: 11/01/17 17:59 Last Admin: 10/03/17 09:05 Dose: 1 jeannie Lamotrigine (Lamictal) 150 mg PO BID KEYONA Stop: 03/31/18 20:59 Last Admin: 10/03/17 09:05 Dose: 150 mg Departure - Departure Disposition: [facility] Acute Clinical Impression: Acute lacunar infarction Condition: Fair
== END 2017-10-03 15:16 | disposition home or self-care (01) ==
LOC: F3N 14:00
PROVIDERS: ADMIT Internal Medicine; ATTEND Internal Medicine
DX: I63.8 Other cerebral infarction (principal); G40.909 Epilepsy, unspecified, not intractable, without status epilepticus; Q21.1 Atrial septal defect; Z87.891 Personal history of nicotine dependence
CPT/HCPCS: 92523-GN; A9585